=== PATIENT | female | born 1985 | race Caucasian/White ===

== ENCOUNTER 2016-05-31 20:50 | Emergency (ER) | payer BC, MEDICAID, OTHER ==
[2016-05-31] MEDS ORDERED: Morphine INJ* 4 MG/ML 1 ML CARPUJECT IM ONE (21:11)
[2016-05-31 21:14] VITALS: BP 83/55
[2016-05-31] MEDS ORDERED: Morphine INJ* 2 MG/ML 1 ML CARPUJECT IM ONE (21:18)
--- NOTE | 2016-05-31 21:18 | UC ---
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 - History of Current Complaint Stated Complaint: ANKLE INJURY Time Seen by Provider: 05/31/16 21:05 Hx Obtained From: Patient Hx Last Menstrual Period: 5 yrs ?: No Onset/Duration: Sudden Onset Severity Initially: Severe Severity Currently: Moderate Alleviating Factor(s): Rest Able to Bear Weight: No - Allergies/Home Medications Allergies/Adverse Reactions: Allergies Allergy/AdvReac Type Severity Reaction Status Date / Time Penicillin V Allergy Severe Anaphylatic Verified 05/31/16 21:15 Shock PMH/Surg Hx/FS Hx/Imm Hx Endocrine History Of: Denies: Diabetes, Thyroid Disease Cardiovascular History Of: Denies: Cardiac Disorders, Hypertension Respiratory History Of: Reports: Asthma Denies: COPD GI/ History Of: Denies: Ulcer - Surgical History Surgical History: Yes Surgery Procedure, Year, and Place: 06/2008 - , right FACIAL SURGERY SEPTEMBER 2012 - Family History Known Family History: Negative: Cardiac Disease, Hypertension - Social History Lives: With Family Alcohol Use: Rare Substance Use Type: None Smoking Status (MU): Light Every Day Tobacco Smoker Amount Used/How Often: 7 cigs daily Have You Smoked in the Last Year: Yes - Immunization History Most Recent Tetanus Shot: Unsure Review of Systems Constitutional: Negative Skin: Negative Eyes: Negative ENT: Negative Respiratory: Negative Cardiovascular: Negative Gastrointestinal: Negative Genitourinary: Negative Motor: Negative Neurovascular: Negative Musculoskeletal: Arthralgia, Other: - swelling over L lower tibia Neurological: Negative Psychological: Negative All Other Systems Reviewed And Are Negative: Yes Physical Exam Triage Information Reviewed: Yes Appearance: Well-Appearing, Pain Distress - moderate, crying, unable to move LLE comfortably Vital Signs Reviewed: Yes Eye Exam: Normal Eyes: Positive: Conjunctiva Clear ENT Exam: Normal ENT: Positive: Normal ENT inspection, Hearing grossly normal, Pharynx normal, TMs normal Dental Exam: Normal Neck exam: Normal Respiratory Exam: Normal Respiratory: Positive: Chest non-tender, Lungs clear, Normal breath sounds, No respiratory distress, No accessory muscle use Cardiovascular Exam: Normal Cardiovascular: Positive: RRR, No Murmur Musculoskeletal Exam: Other - tender, focal swelling L lower leg Musculoskeletal: Positive: Strength Limited @ - L ankle Neurological Exam: Normal Procedures - Splinting Location: LLE Hand-Made Type: orthoglass Splint: posterior walking Pre-Proc Neuro Vasc Exam: normal Post-Proc Neuro Vasc Exam: normal Lower Extremity Course/Dx - Differential Dx/Diagnosis Provider Diagnoses: L tibia and fibula midshaft fractures closed, angulated - Physician Notifications Discussed Patient Care With: Dr. Polanco Instructed by Provider To: Have Pt Call For Appt. Discharge - Discharge Plan Condition: Stable Disposition: HOME Prescriptions: oxyCODONE/Acetamin 5/325 MG* [Percocet 5/325 TAB*] 1 - 2 tab PO Q6H PRN #20 tab MDD 6 PRN Reason: Pain Patient Education Materials: Leg Fracture (ED) Referrals: Golden Polanco MD [Medical Doctor] - 2 Days No Primary Care Phys,NOPCP [Primary Care Provider] - Additional Instructions: Please call the orthopedist tomorrow morning for an appointment within the next 2 days.
--- NOTE | 2016-05-31 21:51 | RAD ---
HISTORY: Slipped on ice, trauma, pain to left tibia COMPARISONS: None VIEWS: 3, frontal and crosstable lateral views of the distal left foreleg FINDINGS: BONE DENSITY: Normal. BONES: There are angulated oblique fractures of the distal tibial diaphysis and distal fibular diaphysis. There is no significant displacement. JOINTS: There is no arthropathy. ALIGNMENT: There is no dislocation. SOFT TISSUES: Unremarkable. OTHER FINDINGS: None. IMPRESSION: ANGULATED FRACTURES OF THE DISTAL TIBIAL AND FIBULAR DIAPHYSES
[2016-05-31] MEDS ORDERED: HYDROcodone/ACETAMIN 5-325 MG* 1 TAB PO ONE (22:12)
[2016-05-31] MEDS ORDERED: Ondansetron ODT TAB* 4 MG PO ONE (22:12)
== END 2016-05-31 22:25 | disposition home or self-care (01) ==
LOC: UCEAST 20:50
DX: S82.302A Unspecified fracture of lower end of left tibia, initial encounter for closed fracture (principal); S82.402A Unspecified fracture of shaft of left fibula, initial encounter for closed fracture; W00.0XXA Fall on same level due to ice and snow, initial encounter; Y93.9 Activity, unspecified; Y92.9 Unspecified place or not applicable; F17.210 Nicotine dependence, cigarettes, uncomplicated
CPT/HCPCS: 96372; 99213; A9270-GY; G0463; J2270

== ENCOUNTER 2016-06-03 11:15 | Day surgery (SDC) | payer BC, OTHER ==
[~2016-06-03 11:15] MED LIST: Buffered Lidocaine 1% SYR 3ML* 3 ML/SYR SYRINGE INTRADERM ONE; Dexamethasone IV* 4 MG/ML 1 ML (4 MG) IV SLOW PU ONE; Famotidine IV* 10 MG/ML 2 ML (20 mg) IV ONE
[2016-06-03] MEDS ORDERED: Dexamethasone IV* 4 MG/ML 1 ML (4 MG) ONE (11:30)
[2016-06-03] MEDS ORDERED: Clindamycin 900 MG IVPREMIX(* 900 MG/50 ML SDV IV ONE (11:30)
[2016-06-03] MEDS ORDERED: Famotidine IV* 10 MG/ML 2 ML (20 mg) ONE (11:30)
[2016-06-03 11:50] LABS: UR Preg Internal Control QC Line Present
[2016-06-03] MEDS ORDERED: Midazolam* 1 MG/ML 2 ML VIAL (2 MG) ONE (12:47)
[2016-06-03] MEDS ORDERED: Propofol* 10 MG/ML 20 ML BTL IV PUSH ONE (12:47)
[2016-06-03] MEDS ORDERED: fentaNYL* 50 MCG/ML 2 ML VIAL (100 MCG VIAL) ONE ×5 (12:47→17:46)
[2016-06-03] MEDS ORDERED: Lidocaine 2% PF * 5 ML VIAL ONE (12:47)
[2016-06-03] MEDS ORDERED: KETAMINE HCL* 50 MG/ML 10 ML VIAL ONE (13:38)
[2016-06-03] MEDS ORDERED: Ketorolac INJ* 30 MG/ML 1 ML VIAL ONE (13:38)
[2016-06-03] MEDS ORDERED: Phenylephrine IV* 40 MCG/ML 10 ML SYRINGE ONE (13:43)
[2016-06-03] MEDS ORDERED: PROCHLORPERAZINE INJ 5 MG/ML 2 ML VIAL IV PRN (14:10)
[2016-06-03] MEDS ORDERED: fentaNYL* 50 MCG/ML 2 ML VIAL (100 MCG VIAL) IV PRN (14:10)
[2016-06-03] MEDS ORDERED: Scopolamine 1.5 mg* PATCH TRANSDERM PRN (14:10)
[2016-06-03] MEDS ORDERED: Ondansetron INJ* 2 MG/ML VIAL ONE (16:05)
[2016-06-03] MEDS ORDERED: oxyCODONE/Acetamin 5/325 MG* TAB ONE (19:08)
[2016-06-03] MEDS: oxyCODONE/Acetamin 5/325 MG* TAB PO PRN ×2 (19:10→19:16)
[2016-06-03] MEDS ORDERED: PROCHLORPERAZINE INJ 5 MG/ML 2 ML VIAL ONE (19:11)
[2016-06-03] MEDS ORDERED: Scopolamine 1.5 mg* PATCH ONE (19:12)
[2016-06-03] MEDS ORDERED: Morphine INJ* 10 MG/ML 1 ML CARPUJECT ONE (19:28)
[2016-06-03] MEDS: Morphine INJ* 2 MG/ML 1 ML CARPUJECT IV PRN ×2 (19:30→19:35)
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
[2016-06-03 20:13] VITALS: BP 100/86
--- NOTE | 2016-06-03 21:11 | RAD ---
INDICATION: Left foreleg trauma, ORIF COMPARISONS: May 31, 2016 TECHNIQUE: Fluoroscopy was provided for a surgical procedure. Total fluoroscopy time is: 3 minutes, 29.4 seconds FINDINGS: Spot images demonstrate internal fixation of the tibia and fibula. IMPRESSION: FLUOROSCOPY WAS PROVIDED FOR A SURGICAL PROCEDURE CPT II Codes: 6045F
[2016-06-06] MEDS ORDERED: Scopolamine PATCH Remove* 1 NOTE MISC PATCH OFF ONE (14:11)
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
== END 2016-06-03 19:50 | disposition home or self-care (01) ==
LOC: OR 11:15
PROVIDERS: ATTEND Orthopaedic Surgery
DX: S82.302A Unspecified fracture of lower end of left tibia, initial encounter for closed fracture (principal); S82.402A Unspecified fracture of shaft of left fibula, initial encounter for closed fracture; F17.210 Nicotine dependence, cigarettes, uncomplicated; W19.XXXA Unspecified fall, initial encounter; Y92.89 Other specified places as the place of occurrence of the external cause
CPT/HCPCS: 81025; A9270-GY; C1713; C1769; C1776; J0780; J1100; J1885; J2250; J2270; J2405; J2704; J3010

== ENCOUNTER 2018-04-01 01:00 | Emergency (ER) | payer BC ==
[2018-04-01] MEDS ORDERED: Ibuprofen TAB* 600 MG PO ONE (01:41)
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
--- NOTE | 2018-04-01 03:00 | ED ---
Progress - Progress Note Progress Note: Patient is received as a sign out at 0230 from ISABELLE Mancini pending Maxillofacial CT. MAXILLOFACIAL CT IMPRESSION: Acute fractures in the bilateral nasal bones and right zygomatic arch. THIS REPORT WAS REVIEWED BY ED PHYSICIAN. Course/Dx - Course Course Of Treatment: Patient is received as a sign out at 0230 from ISABELLE Mancini pending Maxillofacial CT. MAXILLOFACIAL CT IMPRESSION: Acute fractures in the bilateral nasal bones and right zygomatic arch. THIS REPORT WAS REVIEWED BY ED PHYSICIAN. Patient became frustrated with waiting for discharge and stormed out before she was given discharge papers. - Diagnoses Provider Diagnoses: Nasal fracture, Zygomatic fracture Discharge - Sign-Out/Discharge Documenting (check all that apply): Patient Departure - elopement - Discharge Plan Condition: Stable Disposition: ELOPEMENT Prescriptions: Amoxicillin/Clavulanate TAB* [Augmentin TAB 875*] 875 mg PO BID #14 tab oxyCODONE/Acetamin 5/325 MG* [Percocet 5/325 TAB*] 1 tab PO Q6H PRN #14 tab MDD 4 PRN Reason: Pain Patient Education Materials: Nasal Fracture (ED), Facial Fracture (ED) Referrals: Shayne Lindsay MD [Medical Doctor] - 3 Days Additional Instructions: RETURN TO THE EMERGENCY DEPARTMENT FOR CHANGING OR WORSENING SYMPTOMS. FOLLOW UP WITH DR. LINDSAY IN THREE DAYS ON TUESDAY. - Attestation Statements Document Initiated by Scribe: Yes Documenting Scribe: TIMMY SINGH Provider For Whom Scribe is Documenting (Include Credential): KM POLLRAD MD Scribe Attestation: I, TIMMY SINGH , scribed for KM POLLARD MD on 04/01/18 at 0451. Status of Scribe Document: Ready
[2018-04-01] MEDS ORDERED: oxyCODONE/Acetamin 5/325 MG* TAB PO ONE (03:30)
[2018-04-01] MEDS ORDERED: Amoxicillin/Clavulanate TAB* 875 MG PO ONE (03:37)
[2018-04-01 05:01] VITALS: BP 0/0
[2018-04-01] MEDS ORDERED: Oxymetazoline 0.05% NASAL SPR* 15 ML BTL BOTH NARES SCH (09:00)
== END 2018-04-01 04:12 | disposition left against medical advice (07) ==
LOC: ED 01:00
DX: S02.2XXA Fracture of nasal bones, initial encounter for closed fracture (principal); S02.40EA Zygomatic fracture, right side, initial encounter for closed fracture; Y04.2XXA Assault by strike against or bumped into by another person, initial encounter; Y92.810 Car as the place of occurrence of the external cause; Y07.03 Male partner, perpetrator of maltreatment and neglect; Z88.0 Allergy status to penicillin; F17.210 Nicotine dependence, cigarettes, uncomplicated
CPT/HCPCS: 70486; 99283; A9270-GY